=== PATIENT | female | born 1990 | race Caucasian/White ===

== ENCOUNTER 2017-12-18 21:39 | Emergency (ER) | payer OTHER ==
[~2017-12-18] VITALS: Ht 157.5 cm; Wt 68.0 kg
[2017-12-18 21:41] VITALS: Ht 157.5 cm; Wt 68.0 kg
[2017-12-18 22:52] VITALS: BP 125/79
== END 2017-12-18 22:52 | disposition short-term general hospital (02) ==
LOC: ED 21:39
DX: O26.893 Other specified pregnancy related conditions, third trimester (principal); O75.9 Complication of labor and delivery, unspecified; Z3A.00 Weeks of gestation of pregnancy not specified